=== PATIENT | male | born 1975 | race Asian ===

== ENCOUNTER 2022-01-16 22:30 | Inpatient (IN) | payer OTHER ==
[~2022-01-16] VITALS: Ht 170.2 cm; Wt 99.8 kg
--- NOTE | 2022-01-16 22:35 | NUR ---
TO ER BED 9. BIBRA FOR WITNESSED SYNOCOPAL EPISODE AT [facility]. PT STATES HX OF STROKE. CONNECTED TO MONITOR. AWAITING MD MCCOY
--- NOTE | 2022-01-16 22:43 | NUR ---
COVID ANTIGEN SWAB COLLECTED AND SENT TO LAB
[2022-01-16] MEDS ORDERED: ONDANSETRON HCL/PF 4 MG/2 ML VIAL ONE (22:51)
[2022-01-16] MEDS ORDERED: IV NS 0.9% 1,000 ML BAG IV ONE (23:00)
[2022-01-16] MEDS ORDERED: ONDANSETRON HCL/PF 4 MG/2 ML VIAL IVP ONE (23:00)
[2022-01-16 23:18] LABS: BASOPHILS % (AUTO) 0.3 % (0.0-2.0); EOSINOPHILS % (AUTO) 1.1 % (0.0-6.0); HEMATOCRIT 44 % (39-51); HEMOGLOBIN 14.7 g/dL (13.5-17.5); LYMPHOCYTES # (AUTO) 1.4 K/uL (0.8-4.8); LYMPHOCYTES % (AUTO) 12.3 % (20.0-44.0); MEAN CORPUSCULAR HGB CONC 33 g/dl (31.0-36.0); MEAN CORPUSCULAR VOLUME 91 fL (80-96); MONOCYTES # (AUTO) 0.5 K/uL (0.1-1.30); NEUTROPHILS # (AUTO) 9.5 K/uL (1.8-8.9); NEUTROPHILS % (AUTO) 82.3 % (43.0-81.0); PLATELET COUNT (AUTO) 249 K/uL (150-450); RED BLOOD CELL COUNT(AUTO) 4.88 MIL/uL (4.5-6.0); WHITE BLOOD COUNT (AUTO) 11.6 K/uL (4.3-11.0)
[2022-01-16 23:24] LABS: CALCIUM, SERUM 8.6 mg/dL (8.5-10.1); CARBON DIOXIDE 27 mmol/L (21-32); CHLORIDE 102 mmol/L (98-107); CREATININE 2.1 mg/dL (0.6-1.3); GLUCOSE 191 mg/dL (74-106); POTASSIUM 3.6 mmol/L (3.5-5.1); SODIUM SERUM 137 mmol/L (136-145); UREA NITROGEN, BLOOD 24 mg/dL (7-18)
[2022-01-16 23:28] LABS: ALANINE AMINOTRANSFERASE 23 U/L (12-78); ALBUMIN 3.8 g/dL (3.4-5.0); ALKALINE PHOSPHATASE 37 U/L (46-116); ASPARTATE AMINOTRANSFERASE 21 U/L (15-37); BILIRUBIN,DIRECT 0.2 mg/dL (0.0-0.2); BILIRUBIN,TOTAL 0.5 mg/dL (0.2-1.0); TOTAL PROTEIN, SERUM 7.1 g/dL (6.4-8.2)
--- NOTE | 2022-01-16 23:41 | NUR ---
PT TAKEN FOR CT SCAN
--- NOTE | 2022-01-16 23:55 | NUR ---
PT RETURNED FROM CT SCAN, RECONNECTED TO MONITOR
--- NOTE | 2022-01-17 | NUR ---
URINE SAMPLE COLLECTED AND SENT TO LAB
--- NOTE | 2022-01-17 00:20 | NUR ---
RECIEVED BED 307-1
[2022-01-17] MEDS ORDERED: MAG HYDROX/AL HYDROX/SIMETH 30 ML UDC PO PRN (00:30)
[2022-01-17] MEDS ORDERED: ACETAMINOPHEN 325 MG TABLET PO PRN (00:30)
[2022-01-17] MEDS ORDERED: MAGNESIUM HYDROXIDE 30 ML UDC PO PRN (00:30)
[2022-01-17] MEDS ORDERED: Z GUARD REMEDY 4 OZ OINT TP PRN (00:30)
[2022-01-17] MEDS ORDERED: IV NS 0.9% 1,000 ML IV PRN (00:30)
[2022-01-17] MEDS ORDERED: ONDANSETRON HCL/PF 4 MG/2 ML VIAL IVP PRN (00:30)
[2022-01-17 01:13] LABS: BILIRUBIN,URINE SMALL (NEGATIVE); COLOR,URINE YELLOW (YELLOW); LEUKOCYTE ESTERASE ,URINE NEGATIVE (NEGATIVE); NITRITE, URINE NEGATIVE (NEGATIVE); PROTEIN,URINE 30 mg/dl (NEGATIVE); UGLUCOSE NEGATIVE (NEGATIVE)
--- NOTE | 2022-01-17 01:16 | NUR ---
REPORT GIVEN TO IGNACIO MOLINA FOR YOANNA
[2022-01-17 02:50] VITALS: BP 92/44
--- NOTE | 2022-01-17 02:50 | NUR ---
ADMISSION NOTES PT ARRIVED VIA GURNEY ACCOMPANIED BY RN AND EMT @0250. AOx4, ABLE TO MAKE NEEDS KNOWN. ON RA AND TOLERATING WELL. NO SOB NOTED. NO S/SX OF RESPIRATORY DISTRESS NOTED. TELE MONITOR DETECTS SINUS BRADYCARDIA WITH RATE OF 58. IV ACCES IN R HAND #20G RUNNING NS @75 ML/HR. SAFETY PRECAUTIONS IN PLACE: BED IN LOWEST, LOCKED POSITION, SIDERAILS UPx2, AND BRAKES ON. TABLE AND CALL LIGHT WITHIN REACH. WILL CONTINUE TO MONITOR.
[2022-01-17 04:00] VITALS: BP 90/55
--- NOTE | 2022-01-17 06:53 | NUR ---
RN CLOSING NOTES PT IN BED, ASLEEP, AWAKENS TO VERBAL STIMULI. AOx4, ABLE TO MAKE NEEDS KNOWN. ON RA AND TOLERATING WELL. NO SOB NOTED. NO S/SX OF RESPIRATORY DISTRESS NOTED. TELE MONITOR DETECTS SINUS BRADYCARDIA WITH RATE OF 58. IV ACCESS IN R HAND #20G RUNNING NS @75 ML/HR. ALL ORDERS CARRIED OUT. ALL NEEDS MET. PT KEPT CLEAN AND DRY. SAFETY PRECAUTIONS IN PLACE: BED IN LOWEST, LOCKED POSITION, SIDERAILS UPx2, AND BRAKES ON. TABLE AND CALL LIGHT WITHIN REACH. WILL ENDORSE TO ONCOMING SHIFT FOR YOANNA.
[2022-01-17 07:36] LABS: BASOPHILS % (AUTO) 0.6 % (0.0-2.0); EOSINOPHILS % (AUTO) 2.7 % (0.0-6.0); HEMATOCRIT 43 % (39-51); HEMOGLOBIN 14.1 g/dL (13.5-17.5); LYMPHOCYTES # (AUTO) 2.4 K/uL (0.8-4.8); LYMPHOCYTES % (AUTO) 28.1 % (20.0-44.0); MEAN CORPUSCULAR HGB CONC 33 g/dl (31.0-36.0); MEAN CORPUSCULAR VOLUME 91 fL (80-96); MONOCYTES # (AUTO) 0.7 K/uL (0.1-1.30); MONOCYTES % (AUTO) 7.9 % (2.0-12.0); NEUTROPHILS # (AUTO) 5.1 K/uL (1.8-8.9); NEUTROPHILS % (AUTO) 60.7 % (43.0-81.0); PLATELET COUNT (AUTO) 244 K/uL (150-450); RED BLOOD CELL COUNT(AUTO) 4.68 MIL/uL (4.5-6.0); WHITE BLOOD COUNT (AUTO) 8.4 K/uL (4.3-11.0)
--- NOTE | 2022-01-17 07:59 | NUR ---
RN OPENING NOTE PATIENT RECEIVED IN BED, AO X 4. ABLE TO RESPONDS ALL STIMULI. IN NO ACUTE DISTRESS NOTED. RESPIRATORY EVEN AND UNLABORED ON ROOM AIR. SKIN IS WARM TO TOUCH, KEEP CLEAN/DRY. KEPT ELEVATED HOB FOR ENSURE AIRWAY AND ASPIRATION PRECAUTION, ALSO LOWEST POSITION OF THE BED, S/R UP X 3, BED ALARM IS ON AT ALL THE TIMES. ALL SAFETY PRECAUTION APPLIED. CALL LIGHT WITHIN REACH, WILL CONTINUE TO MONITOR.
[2022-01-17 08:00] VITALS: BP 104/75
[2022-01-17 08:15] LABS: ALBUMIN 3.6 g/dL (3.4-5.0); BILIRUBIN,TOTAL 0.3 mg/dL (0.2-1.0); CALCIUM, SERUM 8.3 mg/dL (8.5-10.1); CREATININE 1.9 mg/dL (0.6-1.3); MAGNESIUM 2.3 mg/dL (1.8-2.4); PHOSPHORUS 3.4 mg/dL (2.5-4.9); POTASSIUM 3.5 mmol/L (3.5-5.1); TOTAL PROTEIN, SERUM 6.8 g/dL (6.4-8.2)
[2022-01-17] MEDS ORDERED: ATOR80TA PO (08:22)
[2022-01-17] MEDS ORDERED: SERT50TA12 PO (08:22)
[2022-01-17] MEDS ORDERED: VALS320T16 PO (08:22)
[2022-01-17] MEDS ORDERED: CARV25TA2 PO (08:22)
[2022-01-17] MEDS ORDERED: HYDR25TA4 PO (08:22)
[2022-01-17] MEDS ORDERED: SPIR25TA6 PO (08:22)
[2022-01-17] MEDS ORDERED: FENO145T21 PO (08:22)
[2022-01-17] MEDS ORDERED: AMLO-213 PO (08:22)
[2022-01-17] MEDS: PANTOPRAZOLE 40 MG TABLET.DR PO SCH (08:37)
[2022-01-17 08:42] LABS: THYROID STIMULATING HORMONE 0.422 uIU/mL (0.358-3.74)
[2022-01-17 16:00] VITALS: BP 124/77
--- NOTE | 2022-01-17 18:33 | NUR ---
RN CLOSING NOTE PATIENT IN BED, IN NO ACUTE DISTRESS OBSERVED. SKIN IS WARM TO TOUCH KEEP CLEAN/DRY. RESPIRATORY EVEN AND UNLABORED ON ROOM AIR. PATIENT WAITING US KIDNEY AND BLADDER TO BE DONE. KEPT ELEVATED HOB FOR ENSURE AIRWAY AND ASPIRATION PRECAUTION, AND LOWEST POSITION OF THE BED FOR SAFETY. CALL LIGHT WITHIN REACH, WILL ENDORSE TO THERMOSTAT MECHANIC.
--- NOTE | 2022-01-17 19:44 | NUR ---
RN NOTE PATIENT AWAKE IN BED. A/OX4. NO S/S OF DISTRESS; BREATHING WELL ON RM AIR W/O DIFFICULTY. L-HAND #22 INTACT AND PATENT W/ NS 75ML/HR. TELE MONITOR REVEALS SR 76. SAFETY MEASURES IN PLACE: BED AT LOWEST POSITION, LOCKED, RAILS UP X3, CALL JEAN WITHIN REACH. WILL CONTINUE TO MONITOR.
[2022-01-17 20:02] VITALS: BP 94/63
[2022-01-17 23:44] VITALS: BP 101/73
[2022-01-18 04:00] VITALS: BP 107/72
[2022-01-18 06:22] LABS: CALCIUM, SERUM 6.1 mg/dL (8.5-10.1); MAGNESIUM 1.7 mg/dL (1.8-2.4); PHOSPHORUS 2.4 mg/dL (2.5-4.9)
[2022-01-18 06:25] LABS: BASOPHILS % (AUTO) 0.5 % (0.0-2.0); EOSINOPHILS % (AUTO) 1.4 % (0.0-6.0); HEMATOCRIT 40 % (39-51); HEMOGLOBIN 13.2 g/dL (13.5-17.5); LYMPHOCYTES # (AUTO) 1.6 K/uL (0.8-4.8); LYMPHOCYTES % (AUTO) 19.8 % (20.0-44.0); MEAN CORPUSCULAR HGB CONC 33 g/dl (31.0-36.0); MEAN CORPUSCULAR VOLUME 92 fL (80-96); MONOCYTES # (AUTO) 0.5 K/uL (0.1-1.30); MONOCYTES % (AUTO) 5.6 % (2.0-12.0); NEUTROPHILS # (AUTO) 5.8 K/uL (1.8-8.9); NEUTROPHILS % (AUTO) 72.7 % (43.0-81.0); PLATELET COUNT (AUTO) 206 K/uL (150-450); RED BLOOD CELL COUNT(AUTO) 4.33 MIL/uL (4.5-6.0)
[2022-01-18 06:34] LABS: POTASSIUM 2.8 mmol/L (3.5-5.1)
--- NOTE | 2022-01-18 06:35 | NUR ---
RN NOTE LAB CONTACTED RN W/ CRITICAL VALUE: POTASSIUM 2.8. ON-CALL MD DR. CRABTREE NOTIFIED, WELL CHARGE NURSE, ANUM. PATIENT STABLE; WILL CONTINUE TO MONITOR PATIENT.
--- NOTE | 2022-01-18 06:41 | NUR ---
RN NOTE ON-CALL DR. CRABTREE RESPONDED BACK W/ ORDER FOR KCL 40 MEQ IV X1. ORDER PLACED. WILL ENDORSE TO NEXT SHIFT.
[2022-01-18] MEDS ORDERED: POTASSIUM CL. PREMIX PERIPHER. 50 ML IV SCH (07:00)
[2022-01-18] MEDS ORDERED: POTASSIUM CHLORIDE 10 MEQ/50 ML PREMIXED IVPB FOR PERIPHERAL LINE IV SCH (07:00)
--- NOTE | 2022-01-18 07:23 | NUR ---
RN CLOSING NOTE PATIENT AWAKE IN BED. A/OX4. NO S/S OF DISTRESS; BREATHING WELL ON RM AIR. L-HAND #22 SL W/ NS 75ML/HR. TELE MONITOR REVEALS SR 60. SAFETY MEASURES IN PLACE: BED AT LOWEST POSITION, LOCKED, RAILS UP X3, CALL JEAN WITHIN REACH. REPORT ENDORSED TO AND ACKNOWLEDGED BY RNCAPRICE, FOR YOANNA.
--- NOTE | 2022-01-18 07:36 | NUR ---
[facility] JAMES NOTES:\ RECEIVED PT IN BED, AWAKE AND ABLE TO VERBALIZED NEEDS. NO COMPLAIN OF ANY PAIN OR WEAKNESS OF NOW, NO SOB OR NO CARDIAC DISTRESS NOTED, ON ROOM AIR TOLERATING WELL. NOTED WITH IV PERIPHERAL LINE ON LEFT HAND G#22 WITH NS @75ML/HR INFUSING WELL. ON TELE MONITOR: WITH READING OF SINUS RYTHM HR 60. MAINTAINED PRECAUTIONARY MEASURES: BED IN LOWEST POSITION, LOCKED WITH BED ALARM, SIDE RAILS UP X2. CALL LIGHT IN EASY REACH FOR HELP/ASSISTANCE.
[2022-01-18 07:58] LABS: THYROID STIMULATING HORMONE 0.256 uIU/mL (0.358-3.74)
[2022-01-18 08:00] VITALS: BP 121/60
[2022-01-18] MEDS ORDERED: POTASSIUM CHLORIDE 20 MEQ TAB.PRT.SR PO ONE (08:00)
[2022-01-18] MEDS ORDERED: MAGNESIUM OXIDE 400 MG TABLET PO ONE (08:00)
[2022-01-18] MEDS: POTASSIUM PHOSPHATE MM 7.5 MMOL in IV NS 0.9% 100 ML IV SCH ×2 (08:15→11:55)
[2022-01-18] MEDS: PANTOPRAZOLE 40 MG TABLET.DR PO SCH (08:16)
[2022-01-18] MEDS ORDERED: Magnesium 1GM/D5W 100ML PREMIX 100 ML IV SCH (09:00)
[2022-01-18 13:24] LABS: ALBUMIN 3.4 g/dL (3.4-5.0); BILIRUBIN,TOTAL 0.3 mg/dL (0.2-1.0); CALCIUM, SERUM 8.3 mg/dL (8.5-10.1); CREATININE 1.4 mg/dL (0.6-1.3); POTASSIUM 4.2 mmol/L (3.5-5.1); TOTAL PROTEIN, SERUM 6.7 g/dL (6.4-8.2)
[2022-01-18 16:00] VITALS: BP 127/88
--- NOTE | 2022-01-18 18:49 | NUR ---
MS RN CLOSING NOTES: PATIENT IN RESTING IN BED, AWAKE AND ABLE TO VERBALIZED NEEDS. WAITING FOR CRYSTAL GROWER TO PICKED HIM UP TO GO HOME. NO COMPLAIN OF ANY PAIN OR WEAKNESS OF NOW, NO SOB OR NO CARDIAC DISTRESS NOTED, ON ROOM AIR TOLERATING WELL. NOTED WITH IV ACCESS, INTACT IN LEFT HAND G#22 SALINE LOCKED. MAINTAINED PRECAUTIONARY MEASURES: BED IN LOWEST POSITION, LOCKED WITH BED ALARM, SIDE RAILS UP X2. CALL LIGHT IN EASY REACH FOR HELP.
--- NOTE | 2022-01-18 19:05 | NUR ---
RN DISCHARGED NOTES: PATIENT DISCHARGED HOME IN STABLE CONDITION. A/O X4. ABLE TO MAKE NEEDS KNOWN. ON ROOM AIR, TOLERATING WELL. ALL BELONGINGS ACCOUNTED FOR AND PT SIGNED BELONGINGS LIST. IV ACCESS ON LEFT HAND REMOVED WITH NO ACTIVE BLEEDING NOTED, DRY PRESSURE DRESSING APPLIED @ SITE. DISCHARGE INSTRUCTIONS/HEALTH TEACHINGS GIVEN TO PT AND VERBALIZED UNDERSTANDING. NAME ARMBAND REMOVED. PT LEFT UNIT VIA WHEELCHAIR @-1900 ACCOMPANIED RN CAPRICE AND PT'S UX DESIGNERSABIHA CORTEZ. AND CHARGE NURSE AWARE OF DISCHARGE.
--- NOTE | 2022-01-19 09:52 | NUR ---
Pt. was discharged over the weekend, SS was not able to meet with pt.
== END 2022-01-18 19:00 | disposition home or self-care (01) | DRG 48 ==
LOC: ER 22:36 → TELE 01-17 00:37 → MED 01-18 13:52
PROVIDERS: ADMIT Internal Medicine; ATTEND Internal Medicine
DX: G90.8 Other disorders of autonomic nervous system (principal); N17.0 Acute kidney failure with tubular necrosis; I95.9 Hypotension, unspecified; E88.09 Other disorders of plasma-protein metabolism, not elsewhere classified; I69.351 Hemiplegia and hemiparesis following cerebral infarction affecting right dominant side; I10 Essential (primary) hypertension; Z79.899 Other long term (current) drug therapy; E87.6 Hypokalemia; T50.2X5A Adverse effect of carbonic-anhydrase inhibitors, benzothiadiazides and other diuretics, initial encounter; Y92.009 Unspecified place in unspecified non-institutional (private) residence as the place of occurrence of the external cause
CPT/HCPCS: 36415; 70450-TC; 71045-TC; 76770-TC; 80048-TC; 80053-TC; 80076-TC; 82533; 83735-TC; 84100-TC; 84443-TC; 84484-TC; 85025-TC; 85730-TC; 87081-TC; 93307-TC; 93880-TC; C9803; G0378; G0480; J2405; J3490; J7030